=== PATIENT | female | born 2000 | race Asian ===

== ENCOUNTER 2019-06-12 18:46 | Emergency (ER) | payer OTHER ==
[~2019-06-12] VITALS: Ht 167.6 cm; Wt 59.9 kg
[2019-06-12 18:52] VITALS: BP 132/72
[2019-06-12 19:19] VITALS: BP 132/72
== END 2019-06-12 19:19 | disposition home or self-care (01) ==
LOC: MED 18:46
DX: B34.9 Viral infection, unspecified (principal); Z88.6 Allergy status to analgesic agent
CPT/HCPCS: 81002; 81025; 99282